=== PATIENT | male | born 1995 | race Hispanic/Latino ===

== ENCOUNTER 2025-03-13 08:16 | Emergency (ER) | payer OTHER, SELFPAY ==
[2025-03-13] MEDS ORDERED: Boostrix 0.5 ML (Tdap) VIAL (>/=7 yrs of age) ONE (08:22)
[2025-03-13 08:41] LABS: #Basophils 0.10 10x3/uL (0.0-0.2); #Eosinophils 0.36 10x3/uL (0.0-0.7); #Monocytes 0.72 10x3/uL (0.11-0.59); #Neutrophils 5.04 10x3/uL (1.40-6.50); %Basophils 1.1 % (0.0-1.0); %Eosinophils 4.0 % (0.0-10.0); %Lymphocytes 29.6 % (21.0-51.0); %Monocytes 8.1 % (0.0-10.0); %Neutrophils 56.5 % (42.0-75.0); Hematocrit 45.6 % (42.0-52.0); Hemoglobin 14.5 g/dL (14.0-18.0); Mean Corpuscular Hemoglobin 28.3 pg (27.0-31.0); Mean Corpuscular Volume 88.9 fL (78.0-98.0); Platelet Count 326 10x3/uL (130-400); Red Blood Cell (RBC) Count 5.13 mill/uL (4.70-6.10); White Blood Cell (WBC) Count 8.92 10x3/uL (4.8-10.8)
[2025-03-13 08:57] LABS: INR-International Normal Ratio 1.0; PTT 29.0 sec (22.9-36.1); Prothrombin Time 13.3 sec (12.0-14.7)
[2025-03-13 09:08] LABS: ALT (SGPT) 71 U/L (Less than 45); AST (SGOT) 48 U/L (11-34); Albumin 3.9 g/dL (3.1-4.5); Alkaline Phosphatase 61 U/L (40-110); Anion Gap 17 mmol/L (10-20); BUN (Urea Nitrogen) 8 mg/dL (8.9-20.6); Bilirubin, Total 0.2 mg/dL (0.3-1.2); Calc. Creatinine Clearance 0 mL/min (70-130); Calcium 8.9 mg/dL (7.8-10.44); Carbon Dioxide 21 mmol/L (22-29); Chloride 105 mmol/L (98-107); Globulin 3.7 g/dL (2.4-3.5); Glucose 164 mg/dL (70-105); Potassium 3.6 mmol/L (3.5-5.1); Sodium 139 mmol/L (136-145)
[2025-03-13] MEDS ORDERED: Iopamidol-370 76% 500 ML MDV (1 ML CHARGE) ONE (13:19)
== END 2025-03-13 11:20 | disposition home or self-care (01) ==
LOC: ERS 08:16
DX: S50.312A Abrasion of left elbow, initial encounter (principal); R07.89 Other chest pain; V63.5XXA Driver of heavy transport vehicle injured in collision with car, pick-up truck or van in traffic accident, initial encounter
CPT/HCPCS: 70450; 71045; 71260; 72125; 74177; 80053; 83605; 84484; 85025; 85610; 85730; 90471; 90715; 93005; 96374; G0390; Q9967